=== PATIENT | male | born 1985 | race Caucasian/White ===

== ENCOUNTER 2017-06-14 20:27 | Emergency (ER) | payer MEDICAID ==
[2014-06-29 15:57] VITALS: BMI 31.6
[2017-06-14 21:22] LABS: SQUAMOUS EPITHIAL 1 /hpf (0-5); URINE BILIRUBIN NEGATIVE (NEGATIVE); URINE BLOOD 2+ (NEGATIVE); URINE CLARITY Hazy (Clear); URINE COLOR Amber (YELLOW); URINE GLUCOSE (UA) NORMAL (Normal); URINE LEUKOCYTE ESTERASE 2+ Leu/uL (Negative); URINE PROTEIN 2+ mg/dL (NEGATIVE)
[2017-06-14 21:30] LABS: BASO # 0.1 K/uL (0.0-0.2); BASO % 0.4 % (0.0-2.0); EOS # 0.1 K/uL (0.0-0.7); EOS % 0.4 % (0.0-4.0); HEMOGLOBIN 14.9 g/dL (12.0-18.0); LYMPH # 1.4 K/uL (1.0-4.3); MEAN CELL VOLUME 83.6 fL (80.0-94.0); MEAN CORPUSCULAR HEMOGLOBIN 28.4 pg (27.0-31.0); MONO % 6.9 % (0.0-10.0); NEUT # 11.6 K/uL (1.8-7.0); NEUT % 82.3 % (50.0-75.0); RBC 5.24 Mil/uL (4.40-5.90); RED CELL DISTRIBUTION WIDTH 13.6 % (11.5-14.5); WHITE BLOOD COUNT 14.1 K/uL (4.8-10.8)
[2017-06-14 21:43] LABS: ALB/GLOB RATIO 1.1 (1.0-2.1); ALT/SGPT 17 U/L (21-72); AST/SGOT 16 U/L (17-59); BLOOD UREA NITROGEN 12 mg/dL (9-20); CALCIUM 9.9 mg/dl (8.6-10.4); GFR AFRICAN-AMERICAN > 60; GFR NON-AFRICAN AMERICAN > 60
[2017-06-14 22:35] VITALS: BP 109/63; PULSE 86; RESP 18; TEMP 98.7; O2SAT 99
[2017-06-14] MEDS ORDERED: Ciprofloxacin 400mg/200ml D5W 400 MG/200 ML BAG IVPB STA (22:35)
[2017-06-14] MEDS ORDERED: Ciprofloxacin 400mg/200ml D5W 400 MG/200 ML BAG IVPB ONE (22:45)
--- NOTE | 2017-06-14 23:20 | US ---
EXAM: US Scrotum EXAM DATE/TIME: 06/14/2017 9:13 PM CLINICAL HISTORY: 31 years old, male; Pain; Scrotum pain; Additional info: Bilateral testicular pain, redness, TECHNIQUE: Real-time ultrasound of the scrotum with color Doppler and image documentation. COMPARISON: There are no prior studies for comparison. FINDINGS: Right: Right testicle measures approximately 4 x 2.5 x 2.7 cm. There is a focal calcification in the testicle. There are no testicular masses.There is expected intratesticular blood flow. There is a small hydrocele. There is a right varicocele. Right epididymal head measures 15 x 9 mm. There is masslike enlargement of the tail of the right epididymis. This measures approximately 1.8 x 1.4 x 2.2 cm. There is hyperemia on color imaging. Left: Left testicle measures approximately 4.2 x 2.2 x 2.7 cm. There are no testicular masses.There is expected intratesticular blood flow. There are small focal calcifications in the left testicle. There is a small hydrocele. There is a left varicocele. There is prominence of the tail of the left epididymis which is mildly hyperemic. Tail measures 1.5 x 1.7 x 1.6 cm. Left epididymal head is less well-visualized. 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
[2017-06-14] MEDS ORDERED: cefTRIAXone (Rocephin) 250 mg Inj IM STA (23:44)
--- NOTE | 2017-06-15 00:30 | C.PDOC ---
History Of Present Illness 31 year old male presents to the ER with a complaint of increasingly worsening pain to the bilateral scrotal area for the past week, associated with hematuria and pus in the urine. Patient reports he has one sexual partner and has had no recent changes. Denies fever, vomiting, chest pain, or SOB. Time Seen by Provider: 06/14/17 21:04 Chief Complaint (Nursing): Male Genitourinary History Per: Patient History/Exam Limitations: no limitations Onset/Duration Of Symptoms: Days Current Symptoms Are (Timing): Still Present Quality Of Discomfort: Unable To Describe Associated Symptoms: Urinary Symptoms (Hematuria, pus in urine). denies: Fever , Vomiting, Chest Pain Alleviating Factors: None Recent travel outside of the [place]: No Past Medical History Reviewed: Historical Data, Nursing Documentation, Vital Signs Vital Signs: Last Vital Signs Temp 98.7 F 06/14/17 22:34 Pulse 86 06/14/17 22:34 Resp 18 06/14/17 22:34 BP 109/63 06/14/17 22:34 Pulse Ox 99 06/15/17 05:51 - Medical History PMH: Anxiety, Hypercholesterolemia - [facility] Procedures OTHER FASCIECTOMY (07/03/14) OTHER THERAPEUTIC APHERESIS (07/03/14) Family History: States: Unknown Family Hx - Social History Hx Tobacco Use: Yes Hx Alcohol Use: Yes Hx Substance Use: No - Immunization History Hx Tetanus Toxoid Vaccination: No Hx Influenza Vaccination: No Hx Pneumococcal Vaccination: No Review Of Systems Constitutional: Negative for: Fever Cardiovascular: Negative for: Chest Pain Respiratory: Negative for: Shortness of Breath Gastrointestinal: Negative for: Vomiting Genitourinary: Positive for: Hematuria, Scrotal Pain, Other (Pus in urine) Musculoskeletal: Positive for: Arm Pain Physical Exam - Physical Exam Appears: Non-toxic, No Acute Distress Skin: Normal Color, Warm, Dry Head: Atraumatic, Normacephalic Eye(s): bilateral: Normal Inspection Ear(s): Bilateral: Normal Nose: Normal Oral Mucosa: Moist Throat: Normal, No Erythema, No Exudate Neck: Normal, Supple Chest: Symmetrical, No Tenderness Cardiovascular: Rhythm Regular Respiratory: Normal Breath Sounds, No Rales, No Rhonchi, No Wheezing Gastrointestinal/Abdominal: Soft, No Tenderness Back: No CVA Tenderness Male Genital: Other (Positive mild to moderate erythema to bilateral scrotum with diffuse tenderness. No abscess appreciated. Positive small masses felt on bilateral scrotum. Chaperoned Bernabe [place].) Neurological/Psych: Oriented x3, Normal Speech ED Course And Treatment - Laboratory Results Result Diagrams: 06/14/17 21:26 06/14/17 21:26 O2 Sat by Pulse Oximetry: 99 (on RA) Pulse Ox Interpretation: Normal - CT Scan/US Testicular US Other Rad Studies (CT/US): Read By Radiologist, Radiology Report Reviewed CT/US Interpretation: EXAM: US Scrotum. EXAM DATE/TIME: 06/14/2017 9:13 PM. CLINICAL HISTORY: 31 years old, male; Pain; Scrotum pain; Additional info: Bilateral testicular pain, redness,. TECHNIQUE: Real-time ultrasound of the scrotum with color Doppler and image documentation. COMPARISON: There are no prior studies for comparison. FINDINGS: Right: Right testicle measures approximately 4 x 2.5 x 2.7 cm. There is a focal calcification in the. testicle. There are no testicular masses.There is expected intratesticular blood flow. There is a small. hydrocele. There is a right varicocele. Right epididymal head measures 15 x 9 mm. There is masslike enlargement of the tail of the right. epididymis. This measures approximately 1.8 x 1.4 x 2.2 cm. There is hyperemia on color imaging. Left: Left testicle measures approximately 4.2 x 2.2 x 2.7 cm. There are no testicular masses.There. is expected intratesticular blood flow. There are small focal calcifications in the left testicle. There is a. small hydrocele. There is a left varicocele. There is prominence of the tail of the left epididymis which. is mildly hyperemic. Tail measures 1.5 x 1.7 x 1.6 cm. Left epididymal head is less well- visualized. 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 epididymitis Medical Decision Making Medical Decision Making: Blood work, urinalysis, and testicular US ordered. Cipro, doxycycline, rocephin , and toradol administered. On reevaluation, patient is resting comfortably in no distress, discussed US results with patient and advised to follow up with urologist for further evaluation. Results were thorughly invastor Disposition - Disposition Referrals: Walter Downs MD [Staff Provider] - Disposition: HOME/ ROUTINE Disposition Time: 00:27 Condition: GOOD Additional Instructions: Follow up with the medical doctor within 1-2 days. Return if worsened. 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 - Scribe Statement The provider has reviewed the documentation as recorded by the Scribe Kiran Marcano All medical record entries made by the Shaggyibcarmelina were at my direction and personally dictated by me. I have reviewed the chart and agree that the record accurately reflects my personal performance of the history, physical exam, medical decision making, and the department course for this patient. I have also personally directed, reviewed, and agree with the discharge instructions and disposition.
== END 2017-06-15 00:41 | disposition home or self-care (01) ==
LOC: C.ER 20:27
DX: N45.1 Epididymitis (principal); E78.00 Pure hypercholesterolemia, unspecified
CPT/HCPCS: 76870; 80053; 81001; 85025; 87086; 87491; 87591; 96365; 96366; 96372; 96375; 99284; J0696; J0744; J1885